=== PATIENT | female | born 1985 | race Caucasian/White ===

== ENCOUNTER → 2018-11-02 07:50 | Outpatient (CLI) | payer OTHER, MEDICAID, SELFPAY ==
--- NOTE | 2018-11-02 07:52 | DI.US.S_ITS ---
PROCEDURE: US THYROID INDICATIONS: ENLARGED THYROID TECHNIQUE: Real-time scanning was performed of the thyroid gland, with image documentation. COMPARISON: None. FINDINGS: Right: Thyroid lobe measures 4.6 x 1.4 x 1.5 cm, and is homogeneous in echotexture. Left: Thyroid lobe measures 5.1 x 1.3 x 1.4 cm, and is homogenous in echotexture. Isthmus: 4.3 mm thick. Nodule number: #1 Location: Upper pole left thyroid lobe Size: 1.3 x 0.6 x 0.5 cm. Composition: Solid Echogenicity: Hypoechoic Shape: Wider than tall Margins: Ill-defined Echogenic foci: None Total points: 4 ACR TI-RADS category: 4 Nodule number: #2 Location: Lower pole of left thyroid lobe Size: 0.6 x 0.4 x 0.4 cm. Composition: Solid Echogenicity: Hypoechoic Shape: Wider than tall Margins: Smooth Echogenic foci: None Total points: 4 ACR TI-RADS category: 4 Nodule number: #3 Location: Upper pole right thyroid lobe Size: 0.9 x 0.4 x 0.6 cm. Composition: Solid Echogenicity: Hypoechoic Shape: Wider than tall Margins: Ill-defined Echogenic foci: None Total points: 4 ACR TI-RADS category: 4 IMPRESSION: 3 small hypoechoic nodules in left and right thyroid lobes as described above. TI-RADS 4 (moderately suspicious): 4-6 points. * FNA if 1.5 cm or larger, follow up if 1 cm or larger (at 1, 2, 3, and 5 years). Dictated by: Juan Jose Erazo M.D. on 11/02/2018 at 10:55 Approved by: Juan Jose Erazo M.D. on 11/02/2018 at 11:13
--- NOTE | 2018-11-02 07:52 | DI.MG.S_ITS ---
BILATERAL DIGITAL DIAGNOSTIC MAMMOGRAM 3D/2D: 11/02/2018 CLINICAL: Right breast skin lesion.Mass in the left breast. Baseline exam. No prior exams were available for comparison. The tissue of both breasts is heterogeneously dense. This may lower the sensitivity of mammography. No significant masses, calcifications, or other findings are seen in either breast. IMPRESSION: INCOMPLETE: NEEDS ADDITIONAL IMAGING EVALUATION There is no mammographic abnormality seen in the right breast to correspond with the skin lesion. There is no mammographic abnormality seen in the left breast to correspond with the palpable abnormality felt by the clinician. The paitent cannot localize the palpable abnormality reported by the clinician, and no description of the region was provided prior to the study. A targeted ultrasound of the bilateral breasts is recommended. The right breast ultrasound will be performed immediately following this exam. A left breast ultrasound will be performed once the area of clinical concern is confirmed. This exam was interpreted at Station ID: [id number]. NOTE: For mammograms, a report in lay terms will be sent to the patient. Approximately 15% of breast malignancies will not be visualized mammographically. In the management of a palpable breast mass, a negative mammogram must not discourage biopsy of a clinically suspicious lesion. Electronically Signed By: Latha davis/:11/04/2018 10:13:28 Entry: crystal - 11/04/2018 10:13:28 letter sent: Need Ultrasound ACR BI-RADS Category 0: Incomplete [id number]
--- NOTE | 2018-11-02 07:52 | DI.US.S_ITS ---
ULTRASOUND OF RIGHT BREAST: 11/02/2018 CLINICAL: Palpable right breast lump 5:00 1cm from areola. Skin rash. Comparison is made to exam dated: 11/02/2018 mammogram - [facility]. Ultrasound of the right breast was performed on the area of interest. Daniels scale images of the real-time examination were reviewed. IMPRESSION: NEGATIVE There is no sonographic evidence of malignancy. There is no mammographic or sonographic abnormality seen in the right breast to correspond with the skin lesion, however, clinical followup is recommended. A 5 year screening mammogram is recommended. This exam was interpreted at Station ID: [id number]. Electronically Signed By: Latha Hernandez M.D. lk/:11/02/2018 10:06:22 letter sent: Clinical Evaluation Ultrasound BI-RADS: 1 Negative
== END ==
PROVIDERS: PCP Internal Medicine; Visit Provider Internal Medicine
DX: R92.8 Other abnormal and inconclusive findings on diagnostic imaging of breast (principal); N63.14 Unspecified lump in the right breast, lower inner quadrant; E04.2 Nontoxic multinodular goiter
CPT/HCPCS: 76536; 76642; 77066; G0279

== ENCOUNTER → 2018-11-26 08:00 | Outpatient (CLI) | payer OTHER, MEDICAID, SELFPAY | PROVIDERS: PCP Family Medicine; Visit Provider Family Medicine | DX: R92.8 Other abnormal and inconclusive findings on diagnostic imaging of breast (principal); Z53.9 Procedure and treatment not carried out, unspecified reason ==

== ENCOUNTER → 2018-12-08 17:02 | Outpatient (REF) | payer OTHER, MEDICAID, SELFPAY | LOC: LAB 17:02 | PROVIDERS: PCP Family Medicine; Visit Provider Internal Medicine | DX: N64.52 Nipple discharge (principal) | CPT/HCPCS: 87070; 87075; 87147; 87205 ==

== ENCOUNTER → 2019-01-11 08:07 | Outpatient (CLI) | payer OTHER, MEDICAID, SELFPAY ==
--- NOTE | 2019-01-11 | DI.NM.S_ITS ---
PROCEDURE: NM UPTAKE AND SCAN RADIOPHARMACEUTICAL: 390 ?Ci I-123 sodium iodide by mouth. INDICATIONS: MULTIPLE THYROID NODULES NIGHT SWEATS TECHNIQUE: I-123 sodium iodide was administered orally. Anterior neck images were obtained, and iodine uptake by the thyroid gland calculated using artificial log machine operator's software. COMPARISON: [facility], , US THYROID, 11/02/2018, 8:18. FINDINGS: Morphology: One the 24 hour image, there is suggestion of left upper pole photopenic region, however this is not confirmed on oblique or six-hour images, nor does this conform to the size of the nodules seen on the comparison ultrasound. Uptake: 6 hour thyroid uptake is 5.1%; normal ranges are from 6-18%. 24 hour thyroid uptake is 11.4%; normal ranges are from 10-30%. IMPRESSION: Mildly decreased 6 hour thyroid uptake as above. Normal 24 hour thyroid uptake. No convincing photopenic nodules as above. Recommend continued surveillance as detailed on the prior comparison ultrasound Dictated by: Tan Cronin M.D. on 01/12/2019 at 11:21 Approved by: Tan rConin M.D. on 01/12/2019 at 11:27
== END ==
PROVIDERS: PCP Internal Medicine; Visit Provider Internal Medicine
DX: E04.2 Nontoxic multinodular goiter (principal); R61 Generalized hyperhidrosis
CPT/HCPCS: 78014; A9516

== ENCOUNTER → 2020-05-09 09:42 | Outpatient (CLI) | payer OTHER, MEDICAID, SELFPAY ==
--- NOTE | 2020-05-09 | DI.US.S_ITS ---
PROCEDURE: US THYROID INDICATIONS: THYROID NODULES TECHNIQUE: Real-time scanning was performed of the thyroid gland, with image documentation. COMPARISON: [facility], [place], US THYROID, 11/02/2018, 8:18. FINDINGS: Right: Thyroid lobe measures 6.6 x 1.5 x 1.5 cm, and is homogeneous in echotexture. Left: Thyroid lobe measures 5.1 x 1.3 x 1.4 cm, and is homogenous in echotexture. Isthmus: 4.3 mm thick. Nodule number: 1 Location: Left superior Size: Unchanged at 0.9 x 0.6 x 0.6 cm. Composition: Solid Echogenicity: Hypoechoic Shape: wider than tall. Margins: Ill-defined Echogenic foci: None Total points: 5 ACR TI-RADS category: Moderately suspicious Nodule number: 2 Location: Left inferior Size: Unchanged at 0.5 x 0.5 x 0.4 cm. Composition: Solid Echogenicity: Hypoechoic Shape: wider than tall. Margins: Ill-defined Echogenic foci: None Total points: 5 ACR TI-RADS category: Moderately suspicious Nodule number: 3 Location: Right superior Size: Unchanged at 0.9 x 0.5 x 0.6 cm. Composition: Solid Echogenicity: Hypoechoic Shape: wider than tall. Margins: Ill-defined Echogenic foci: No Total points: 5 ACR TI-RADS category: Moderately suspicious IMPRESSION: Stable appearance of bilateral thyroid nodules. ACR TI-RADS definitions and recommendations: TI-RADS 1 (benign): 0 points. FNA not needed. TI-RADS 2 (not suspicious): 2 points. FNA not needed. TI-RADS 3 (mildly suspicious): 3 points. * FNA if 2.5 cm or larger, follow up if 1.5 cm or larger (at 1, 3, and 5 years). TI-RADS 4 (moderately suspicious): 4-6 points. * FNA if 1.5 cm or larger, follow up if 1 cm or larger (at 1, 2, 3, and 5 years). TI-RADS 5 (highly suspicious): 7 points or more. * FNA if 1 cm or larger, follow up if 0.5 cm or larger (every year for 5 years). Dictated by: Riki Bourne Emanuel Interpreted: Juan Jose Erazo MD on 05/09/2020 at 14:33 Approved by: Juan Jose Erazo M.D. on 05/09/2020 at 15:19
== END ==
PROVIDERS: PCP Internal Medicine; Referring Provider Internal Medicine; Visit Provider Internal Medicine
DX: E04.2 Nontoxic multinodular goiter (principal)
CPT/HCPCS: 76536

== ENCOUNTER → 2021-05-10 10:32 | Outpatient (CLI) | payer OTHER, MEDICAID, SELFPAY ==
--- NOTE | 2021-05-10 | DI.US.S_ITS ---
PROCEDURE: US THYROID INDICATIONS: NONTOXIC MULTINODULAR GOITER TECHNIQUE: Real-time scanning was performed of the thyroid gland, with image documentation. COMPARISON: [facility], [place], US THYROID, 05/09/2020, 10:08. FINDINGS: Right: Thyroid lobe measures 4.6 x 1.6 x 1.3 cm, and is homogeneous in echotexture. Left: Thyroid lobe measures 4.4 x 1.6 x 1.1 cm, and is homogenous in echotexture. Isthmus: Four mm thick. Nodule number: 1 Location: Left inferior pole, previously nodule 2. Size: 0.5 x 0.3 x 0.4 cm. Previously 0.5 x 0.4 x 0.5 Composition: Solid Echogenicity: Mildly hypoechoic Shape: Taller than wide Margins: Smooth Echogenic foci: None Total points: Seven ACR TI-RADS category: Five highly suspicious IMPRESSION: 1. No significant change in suspicious nodule in the left inferior pole. Continue annual follow-up. 2. The other nodule seen previously are not well seen on the current study. ACR TI-RADS definitions and recommendations: TI-RADS 1 (benign): 0 points. FNA not needed. TI-RADS 2 (not suspicious): 2 points. FNA not needed. TI-RADS 3 (mildly suspicious): 3 points. * FNA if 2.5 cm or larger, follow up if 1.5 cm or larger (at 1, 3, and 5 years). TI-RADS 4 (moderately suspicious): 4-6 points. * FNA if 1.5 cm or larger, follow up if 1 cm or larger (at 1, 2, 3, and 5 years). TI-RADS 5 (highly suspicious): 7 points or more. * FNA if 1 cm or larger, follow up if 0.5 cm or larger (every year for 5 years). Dictated by: Lizabeth Lowe M.D. on 05/10/2021 at 13:29 Approved by: Lizabeth Lowe M.D. on 05/10/2021 at 13:51
== END ==
PROVIDERS: PCP Internal Medicine; Referring Provider Internal Medicine; Visit Provider Internal Medicine
DX: E04.2 Nontoxic multinodular goiter (principal)
CPT/HCPCS: 76536

== ENCOUNTER → 2022-08-22 07:51 | Outpatient (CLI) | payer OTHER, MEDICAID, SELFPAY ==
--- NOTE | 2022-08-22 | DI.US.S_ITS ---
PROCEDURE: US PELVIC COMPLETE INDICATIONS: PELVIC PAIN/DYSMENORRHEA TECHNIQUE: Real-time scanning was performed of the pelvic organs, with image documentation. Additional endovaginal scanning was necessary due to incomplete visualization of the adnexal and endometrial structures by transabdominal scanning. COMPARISON: [facility], [place], PELVIC COMPLETE, 02/23/2018, 16:14. FINDINGS: Uterus: Uterus is mildly enlarged in size at 10.6 x 7.2 x 4.3 cm. The myometrium is heterogeneous. The endometrium measures 9 mm combined thickness. The IUD is seen at its expected location. Ovaries: The right ovary measures 4.8 x 2.3 x 2.8 cm, with a calculated ovarian volume of 17.1 cc. The left ovary measures 3.2 x 3.4 x 2 cm, with a calculated ovarian volume of 10.9 cc. Within the right ovary, there is a likely hemorrhagic cyst seen that measures 2.1 x 2 x 1 x 1.6 cm. The ovaries have a otherwise normal sonographic appearance. Less than 12 follicles can be seen in each ovary. No adnexal masses are seen. Other: No pathologic free abdominal or pelvic fluid. IMPRESSION: Likely hemorrhagic cyst seen of the right ovary, 2.1 cm. - If it would be clinically appropriate, a followup pelvic ultrasound could be considered in 6 weeks to assure resolution/ improvement. The IUD is seen at its expected location. We strive to produce accurate, complete, and clear reports of imaging services. To assist us in improving patient care, this report was composed using standard report templates and voice recognition software. Therefore, it may contain abnormal punctuation, insertions and/or omissions. Occasional wrong-word or sound-alike substitutions may occur. Though we review the report and make efforts to correct it, we do recommend that the report be read carefully in proper context to recognize any text inaccuracies. Dictated by: Sam Albright M.D. on 08/22/2022 at 9:35 Transcribed by: BELKIS on 08/22/2022 at 9:57 Approved by: Sam Albright M.D. on 08/22/2022 at 10:40
== END ==
PROVIDERS: PCP Internal Medicine; Referring Provider Internal Medicine; Visit Provider Internal Medicine
DX: N94.6 Dysmenorrhea, unspecified (principal); N93.9 Abnormal uterine and vaginal bleeding, unspecified; Z97.5 Presence of (intrauterine) contraceptive device
CPT/HCPCS: 76830; 76856

== ENCOUNTER → 2022-09-04 12:13 | Outpatient (CLI) | payer OTHER, MEDICAID, SELFPAY ==
--- NOTE | 2022-09-04 | DI.US.S_ITS ---
PROCEDURE: US THYROID INDICATIONS: Nontoxic multinodular goiter TECHNIQUE: Real-time scanning was performed of the thyroid gland, with image documentation. COMPARISON: [facility], [place], US THYROID, 05/10/2021, 11:07. FINDINGS: Right: Thyroid lobe measures 4.5 x 1.6 x 1.3 cm, and is heterogeneous in echotexture. Left: Thyroid lobe measures 4.7 x 1.3 x 1.3 cm, and is heterogeneous in echotexture. Isthmus: 4 mm thick. No discrete thyroid nodule. IMPRESSION: No discrete thyroid nodule seen. Mild heterogeneous appearance of the thyroid gland. Dictated by: Teo Santiago M.D. on 09/04/2022 at 14:41 Approved by: Teo Santiago M.D. on 09/04/2022 at 14:50
== END ==
PROVIDERS: PCP Internal Medicine; Referring Provider Internal Medicine; Visit Provider Internal Medicine
DX: E04.2 Nontoxic multinodular goiter (principal)
CPT/HCPCS: 76536

== ENCOUNTER → 2025-01-27 08:37 | Outpatient (CLI) | payer OTHER, SELFPAY ==
--- NOTE | 2025-01-27 08:39 | DI.US.S_ITS ---
PROCEDURE: US PELVIC COMPLETE INDICATIONS: CERVICAL STENOSIS,UTERINE CRAMPING TECHNIQUE: Real-time scanning was performed of the pelvic organs, with image documentation. Additional endovaginal scanning was necessary due to incomplete visualization of the adnexal and endometrial structures by transabdominal scanning. COMPARISON: [facility], [place], PELVIC COMPLETE, 02/23/2018, 16:14. FINDINGS: Uterus: Uterus is anteverted and enlarged in size at 9.8 x 7.4 x 5.3 cm. The myometrium is homogeneous. The endometrium measures 7 mm combined thickness. No endometrial mass or fluid. Ovaries: The right ovary measures 3.0 x 2.5 x 1.9 cm, with a calculated ovarian volume of 7.5 cc. The left ovary measures 3.2 x 2.6 x 2.2 cm, with a calculated ovarian volume of 9.6 cc. The ovaries have a normal sonographic appearance. Less than 12 follicles can be seen in each ovary. No adnexal masses are seen. Normal arterial and venous flow is seen in bilateral ovaries on color Doppler images. Other: No pathologic free abdominal or pelvic fluid. IMPRESSION: 1. No evidence of ovarian torsion. 2. Mildly enlarged uterus. No discrete uterine fibroids. No endometrial mass or fluid. We strive to produce accurate, complete, and clear reports of imaging services. To assist us in improving patient care, this report was composed using standard report templates and voice recognition software. Therefore, it may contain abnormal punctuation, insertions and/or omissions. Occasional wrong-word or sound-alike substitutions may occur. Though we review the report and make efforts to correct it, we do recommend that the report be read carefully in proper context to recognize any text inaccuracies. Dictated by: Juan Jose Erazo M.D. on 01/27/2025 at 9:38 Approved by: Juan Jose Erazo M.D. on 01/27/2025 at 9:46
== END ==
LOC: US 08:38
PROVIDERS: PCP Family Medicine; Referring Provider Family Medicine; Visit Provider Family Medicine
DX: N88.2 Stricture and stenosis of cervix uteri (principal); N94.89 Other specified conditions associated with female genital organs and menstrual cycle
CPT/HCPCS: 76830; 76856; 93975

== ENCOUNTER → 2025-05-20 12:00 | Outpatient (CLI) | payer OTHER, SELFPAY ==
--- NOTE | 2025-05-20 12:04 | DI.CT.S_ITS ---
PROCEDURE: CT IVP A/P W/WO INDICATIONS: LEFT FLANK PAIN TECHNIQUE: Optional 5 mm thick noncontrast images acquired from the diaphragm to the symphysis pubis. After the administration of intravenous contrast, 5 mm thick images acquired from the diaphragm to the symphysis pubis after a 10-minute delay. 2 mm thick coronal and sagittal reformats were then performed of the kidneys and ureters. For radiation dose reduction, the following was used: automated exposure control, adjustment of mA and/or kV according to patient size. COMPARISON: None. FINDINGS: Image quality: Diagnostic. Kidneys and Ureters: Both kidneys are normal in size, without hydronephrosis or nephrolithiasis. No perinephric fat stranding. There is normal bilateral renal enhancement. Renal calyces appear normal in morphology when filled with contrast. Opacified portions of both ureters demonstrate normal caliber Bladder: Bladder wall thickness is normal. No calcified bladder stones. OTHER: Lower chest: Unremarkable. Liver: No solid mass. Gallbladder: No radiopaque gallstones or wall thickening. Biliary ducts: No biliary dilation. Pancreas: No ductal dilation. Spleen: Size is within normal limits. Adrenal Glands: No adrenal nodules. Stomach and Bowel: Normal colonic caliber, without significant wall thickening. The appendix is normal Peritoneum: No abnormal intraperitoneal fluid. No free air. Ventral Wall: No hernia. Abdominal Nodes: No retroperitoneal or mesenteric adenopathy by size criteria. Vessels: Aorta and inferior vena cava are normal in size. PELVIS: Pelvic Organs: Unremarkable. Pelvic Nodes: No enlarged lymph nodes. Miscellaneous: No inguinal hernias are seen. Bones: No aggressive osseous abnormality. IMPRESSION: No calculi or signs of obstructive uropathy. No suspicious focal lesion seen in the kidneys and upper tracts. Dictated by: Lonny Cunningham M.D. on 05/21/2025 at 20:14 Approved by: Lonny Cunningham M.D. on 05/21/2025 at 20:20
[2025-05-20 12:32] LABS: Estimated Glomerular Filt Rate > 60 mL/min (>60)
== END ==
LOC: CT 12:01
PROVIDERS: PCP Family Medicine; Referring Provider Family Medicine; Visit Provider Family Medicine
DX: R10.9 Unspecified abdominal pain (principal)
CPT/HCPCS: 36415; 74178; 82565; Q9967